=== PATIENT | male | born 1975 | race Caucasian/White ===

== ENCOUNTER → 2020-07-09 | Outpatient (CLI) | payer BC ==
[2020-07-09 16:25] LABS: BASOPHILS % 0.4 % (0.0-2.0); EOSINOPHILS % 3.5 % (0.0-5.0); HEMATOCRIT. 43.6 % (42.0-52.0); HEMOGLOBIN. 15.1 g/dL (14.0-18.0); LYMPHOCYTES % 31.7 % (20.0-50.0); MEAN CORPUSCULAR HEMOGLOBIN 29.2 pg (28.0-32.0); MEAN CORPUSCULAR VOLUME 83.9 fL (80.0-94.0); MEAN PLATELET VOLUME 9.1 fl (7.4-10.4); MONOCYTES % 11.2 % (2.0-8.0); NEUTROPHILS % 53.2 % (40.0-76.0); PLATELET 164 x1000/uL (130-400); RED BLOOD CELL COUNT 5.19 mill/uL (4.7-6.1); RED CELL DISTRIBUTION WIDTH 14.5 % (11.6-14.6)
[2020-07-09 16:26] LABS: CLARITY URINE CLEAR (CLEAR); COLOR URINE YELLOW (YELLOW); KETONES URINE NEGATIVE (NEGATIVE); LEUKOCYTE ESTERASE URINE NEGATIVE (NEGATIVE); NITRITE URINE NEGATIVE (NEGATIVE); OCCULT BLOOD URINE NEGATIVE (NEGATIVE); PH URINE 6.5 (4.5-8.0); PROTEIN URINE NEGATIVE (NEGATIVE); SPECIFIC GRAVITY URINE 1.025 (1.005-1.030)
[2020-07-09 16:40] LABS: CHLORIDE 106 mEq/L (98-107)
[2020-07-09 16:51] LABS: LDL CHOLESTEROL 131 mg/dL (5-100)
[2020-07-09 16:53] LABS: HDL CHOLESTEROL 32 mg/dL (40-59); TOTAL IRON BINDING CAPACITY 282 ug/dL (250-450)
[2020-07-09 17:03] LABS: FERRITIN 347 ng/mL (22-322)
[2020-07-09 17:14] LABS: VITAMIN B12 SERUM 775 pg/mL (211-911)
[2020-07-09 17:22] LABS: FOLIC ACID (FOLATE) SERUM > 20.00 ng/mL (>5.38)
[2020-07-11 05:12] LABS: % FREE PSA 21.7 % (.); PROSTATE SPECIFIC AG TOTAL 0.6 ng/mL (0.0-4.0); PSA FREE 0.13 ng/mL; VITAMIN D 25-OH 15.4 ng/mL (30.0-100.0)
== END | disposition home or self-care (01) ==
LOC: LAB 15:46
PROVIDERS: ATTEND Internal Medicine Geriatric Medicine
DX: Z12.5 Encounter for screening for malignant neoplasm of prostate (principal); Z00.01 Encounter for general adult medical examination with abnormal findings; N39.0 Urinary tract infection, site not specified
CPT/HCPCS: 36415; 80053; 80061; 81003; 82306; 82607; 82728; 82746; 83036; 83540; 83550; 84153; 84154; 84443; 85025; 86592

== ENCOUNTER → 2020-08-13 | Outpatient (CLI) | payer BC | END | disposition home or self-care (01) | LOC: MRI 08:37 | PROVIDERS: ATTEND Internal Medicine Geriatric Medicine | DX: M51.17 Intervertebral disc disorders with radiculopathy, lumbosacral region (principal); M48.07 Spinal stenosis, lumbosacral region; M77.51 Other enthesopathy of right foot and ankle | CPT/HCPCS: 72148; 73650 ==

== ENCOUNTER → 2021-05-05 | Outpatient (CLI) | payer BC ==
[2021-05-05 09:59] LABS: BASOPHILS % 0.7 % (0.0-2.0); EOSINOPHILS % 4.4 % (0.0-5.0); HEMATOCRIT. 46.2 % (42.0-52.0); LYMPHOCYTES % 34.3 % (20.0-50.0); MEAN CORPUSCULAR VOLUME 83.7 fL (80.0-94.0); MEAN PLATELET VOLUME 9.8 fl (7.4-10.4); MONOCYTES % 8.7 % (2.0-8.0); NEUTROPHILS % 51.9 % (40.0-76.0); PLATELET 136 x1000/uL (130-400); RED BLOOD CELL COUNT 5.53 mill/uL (4.7-6.1); RED CELL DISTRIBUTION WIDTH 14.8 % (11.6-14.6)
[2021-05-05 10:05] LABS: CHLORIDE 107 mEq/L (98-107)
== END | disposition home or self-care (01) ==
LOC: LAB 09:17
PROVIDERS: ATTEND Internal Medicine Geriatric Medicine
DX: K76.0 Fatty (change of) liver, not elsewhere classified (principal); R16.0 Hepatomegaly, not elsewhere classified; N28.81 Hypertrophy of kidney; E55.9 Vitamin D deficiency, unspecified; R10.11 Right upper quadrant pain
CPT/HCPCS: 36415; 76700; 80053; 82306; 83036; 85025

== ENCOUNTER → 2021-08-25 | Outpatient (CLI) | payer BC ==
[2021-08-25 14:02] LABS: CLARITY URINE CLEAR (CLEAR); COLOR URINE DARK YELLOW (YELLOW); KETONES URINE TRACE (NEGATIVE); LEUKOCYTE ESTERASE URINE NEGATIVE (NEGATIVE); NITRITE URINE NEGATIVE (NEGATIVE); OCCULT BLOOD URINE NEGATIVE (NEGATIVE); PH URINE 5.5 (4.5-8.0); PROTEIN URINE TRACE (NEGATIVE)
[2021-08-25 15:27] LABS: BASOPHILS % 0.5 % (0.0-2.0); EOSINOPHILS % 1.7 % (0.0-5.0); HEMATOCRIT. 46.7 % (42.0-52.0); HEMOGLOBIN. 16.2 g/dL (14.0-18.0); LYMPHOCYTES % 34.8 % (20.0-50.0); MEAN CORPUSCULAR HEMOGLOBIN 29.2 pg (28.0-32.0); MEAN CORPUSCULAR VOLUME 83.9 fL (80.0-94.0); MEAN PLATELET VOLUME 9.8 fl (7.4-10.4); MONOCYTES % 7.8 % (2.0-8.0); NEUTROPHILS % 55.2 % (40.0-76.0); PLATELET 146 x1000/uL (130-400); RED BLOOD CELL COUNT 5.56 mill/uL (4.7-6.1)
[2021-08-25 15:32] LABS: CHLORIDE 108 mEq/L (98-107)
[2021-08-25 15:49] LABS: HDL CHOLESTEROL 41 mg/dL (40-59); LDL CHOLESTEROL 125 mg/dL (5-100); PROSTRATE SPECIFIC AG TOTAL 0.68 ng/mL (0.0-4.0); TOTAL IRON BINDING CAPACITY 317 ug/dL (250-450)
[2021-08-25 16:00] LABS: HEPATITIS B SURFACE ANTIGEN NEGATIVE
[2021-08-25 16:11] LABS: FOLIC ACID (FOLATE) SERUM >20 ng/mL ng/mL (>5.38); VITAMIN B12 SERUM 511 pg/mL (211-911)
[2021-08-27 04:07] LABS: FOLICLE STIMULATING HORMONE 3.2 mIU/mL (1.5-12.4); VITAMIN D 25-OH 20.6 ng/mL (30.0-100.0)
== END | disposition home or self-care (01) ==
LOC: LAB 13:09
PROVIDERS: ATTEND Internal Medicine Geriatric Medicine
DX: Z00.01 Encounter for general adult medical examination with abnormal findings (principal); E66.2 Morbid (severe) obesity with alveolar hypoventilation; R73.09 Other abnormal glucose; K75.81 Nonalcoholic steatohepatitis (NASH); N39.0 Urinary tract infection, site not specified; M25.551 Pain in right hip; R03.0 Elevated blood-pressure reading, without diagnosis of hypertension; K29.00 Acute gastritis without bleeding
CPT/HCPCS: 36415; 80053; 80061; 81003; 82306; 82607; 82746; 83001; 83036; 83540; 83550; 84153; 84443; 85025; 85651; 86430; 86592; 86705; 86709; 86803; 87340; G0103

== ENCOUNTER → 2021-08-27 | Outpatient (CLI) | payer BC | END | disposition home or self-care (01) | LOC: RAD 11:55 | PROVIDERS: ATTEND Internal Medicine Geriatric Medicine | DX: M25.551 Pain in right hip (principal); M25.561 Pain in right knee | CPT/HCPCS: 73502; 73562 ==

== ENCOUNTER → 2021-09-09 | Outpatient (CLI) | payer BC | END | disposition home or self-care (01) | LOC: MRI 08:07 | PROVIDERS: ATTEND Internal Medicine Geriatric Medicine | DX: M17.11 Unilateral primary osteoarthritis, right knee (principal); M94.261 Chondromalacia, right knee | CPT/HCPCS: 73721 ==

== ENCOUNTER → 2022-04-07 | Outpatient (CLI) | payer BC ==
[2022-04-07 11:48] LABS: BASOPHILS % 0.7 % (0.0-2.0); CLARITY URINE CLEAR (CLEAR); COLOR URINE YELLOW (YELLOW); EOSINOPHILS % 2.9 % (0.0-5.0); HEMATOCRIT. 47.7 % (42.0-52.0); HEMOGLOBIN. 16.8 g/dL (14.0-18.0); KETONES URINE NEGATIVE (NEGATIVE); LEUKOCYTE ESTERASE URINE NEGATIVE (NEGATIVE); LYMPHOCYTES % 32.1 % (20.0-50.0); MEAN CORPUSCULAR HEMOGLOBIN 29.3 pg (28.0-32.0); MEAN CORPUSCULAR VOLUME 83.2 fL (80.0-94.0); MEAN PLATELET VOLUME 9.6 fl (7.4-10.4); MONOCYTES % 6.5 % (2.0-8.0); NEUTROPHILS % 57.8 % (40.0-76.0); NITRITE URINE NEGATIVE (NEGATIVE); OCCULT BLOOD URINE NEGATIVE (NEGATIVE); PLATELET 155 x1000/uL (130-400); PROTEIN URINE NEGATIVE (NEGATIVE); RED BLOOD CELL COUNT 5.74 mill/uL (4.7-6.1); SPECIFIC GRAVITY URINE 1.018 (1.005-1.030); UROBILINOGEN URINE 0.2 E.U./dL (0.2-1.0)
[2022-04-07 12:04] LABS: CHLORIDE 108 mEq/L (98-107)
[2022-04-07 12:21] LABS: HDL CHOLESTEROL 35 mg/dL (40-59); LDL CHOLESTEROL 112 mg/dL (5-100)
[2022-04-07 12:34] LABS: FOLIC ACID (FOLATE) SERUM 19.5 ng/mL (>5.38)
[2022-04-07 13:46] LABS: PROSTRATE SPECIFIC AG TOTAL 0.64 ng/mL (0.0-4.0)
== END | disposition home or self-care (01) ==
LOC: LAB 11:11
PROVIDERS: ATTEND Internal Medicine Geriatric Medicine
DX: Z00.01 Encounter for general adult medical examination with abnormal findings (principal); R51.9 Headache, unspecified; N39.0 Urinary tract infection, site not specified
CPT/HCPCS: 36415; 80053; 80061; 81003; 82306; 82607; 82728; 82746; 83036; 84153; 84443; 84550; 85025; G0103

== ENCOUNTER → 2022-04-29 | Outpatient (CLI) | payer BC ==
[2022-04-29 09:54] LABS: CHLORIDE 104 mEq/L (98-107)
[2022-04-29 10:00] LABS: HDL CHOLESTEROL 42 mg/dL (40-59); LDL CHOLESTEROL 131 mg/dL (5-100)
== END | disposition home or self-care (01) ==
LOC: LAB 09:16
PROVIDERS: ATTEND Internal Medicine Geriatric Medicine
DX: E78.5 Hyperlipidemia, unspecified (principal)
CPT/HCPCS: 36415; 80048; 80061

== ENCOUNTER → 2022-09-17 | Outpatient (CLI) | payer BC ==
[2022-09-17 07:14] LABS: CLARITY URINE CLOUDY (CLEAR); COLOR URINE ORANGE (YELLOW); KETONES URINE TRACE (NEGATIVE); LEUKOCYTE ESTERASE URINE TRACE (NEGATIVE); NITRITE URINE NEGATIVE (NEGATIVE); OCCULT BLOOD URINE NEGATIVE (NEGATIVE); PROTEIN URINE TRACE (NEGATIVE); SPECIFIC GRAVITY URINE 1.026 (1.005-1.030)
[2022-09-17 08:09] LABS: CHLORIDE 108 mEq/L (98-107)
[2022-09-17 08:38] LABS: VITAMIN B12 SERUM 412 pg/mL (211-911)
[2022-09-17 08:45] LABS: FERRITIN 265 ng/mL (22-322)
[2022-09-17 08:46] LABS: PROSTRATE SPECIFIC AG TOTAL 0.63 ng/mL (0.0-4.0)
[2022-09-17 08:55] LABS: FOLIC ACID (FOLATE) SERUM > 20.00 ng/mL (>5.38)
[2022-09-17 09:55] LABS: HDL CHOLESTEROL 40 mg/dL (40-59); LDL CHOLESTEROL 126 mg/dL (5-100); TOTAL IRON BINDING CAPACITY 306 ug/dL (250-450)
== END | disposition home or self-care (01) ==
LOC: LAB 06:53
PROVIDERS: ATTEND Internal Medicine Geriatric Medicine
DX: Z00.01 Encounter for general adult medical examination with abnormal findings (principal); R73.09 Other abnormal glucose; K75.81 Nonalcoholic steatohepatitis (NASH); N39.0 Urinary tract infection, site not specified; R03.0 Elevated blood-pressure reading, without diagnosis of hypertension; Z12.5 Encounter for screening for malignant neoplasm of prostate; E66.2 Morbid (severe) obesity with alveolar hypoventilation
CPT/HCPCS: 36415; 80053; 80061; 81003; 82306; 82607; 82728; 82746; 83036; 83540; 83550; 84153; 84443; 86592; G0103

== ENCOUNTER → 2022-11-11 | Outpatient (CLI) | payer BC ==
[2022-11-11 17:46] LABS: CHLORIDE 106 mEq/L (98-107); INDEX HEMOLYSI 1 (1-3); INDEX ICTERIC 1 (1-4); INDEX LIPEMIC 1 (1-3); POTASSIUM 3.9 mEq/L (3.5-5.1); SODIUM 138 mEq/L (136-145)
[2022-11-11 17:54] LABS: ALANINE AMINOTRANSFERASE 50 IU/L (13-61); ALBUMIN 3.9 g/dL (3.4-5.0); ASPARTATE AMINOTRANSFERASE 27 IU/L (15-37); BILIRUBIN TOTAL 0.4 mg/dL (0.1-1.0); CALCIUM 8.9 mg/dL (8.5-10.1); CARBON DIOXIDE 27 mEq/L (21-32); CHOLESTEROL 209 mg/dL (<200); CREATININE 0.7 mg/dL (0.6-1.3); GLUCOSE 90 mg/dL (70-105); HDL CHOLESTEROL 43 mg/dL (40-59); LDL CHOLESTEROL 134 mg/dL (5-100); PROTEIN TOTAL 8.1 g/dL (6.0-8.3); TRIGLYCERIDE 261 mg/dL (0-150); UREA NITROGEN BLOOD 19 mg/dL (7-21)
== END | disposition home or self-care (01) ==
LOC: LAB 16:35
PROVIDERS: ATTEND Internal Medicine Geriatric Medicine
DX: E78.00 Pure hypercholesterolemia, unspecified (principal)
CPT/HCPCS: 36415; 80053; 80061; 83036

== ENCOUNTER → 2022-11-19 | Outpatient (CLI) | payer BC ==
[2022-11-19 07:14] LABS: BASOPHILS % 0.5 % (0.0-2.0); DIFFERENTIAL COMMENT 0; EOSINOPHILS % 1.9 % (0.0-5.0); HEMATOCRIT. 45.6 % (42.0-52.0); HEMOGLOBIN. 16.3 g/dL (14.0-18.0); MEAN CORPUSCULAR HEMOGLOBIN 29.8 pg (28.0-32.0); MEAN CORPUSCULAR HGB CONC 35.7 g/dL (31.0-37.0); MEAN CORPUSCULAR VOLUME 83.4 fL (80.0-94.0); MEAN PLATELET VOLUME 9.2 fl (7.4-10.4); MONOCYTES % 9.9 % (2.0-8.0); NEUTROPHILS % 61.7 % (40.0-76.0); PLATELET 147 x1000/uL (130-400); RED BLOOD CELL COUNT 5.47 mill/uL (4.7-6.1); RED CELL DISTRIBUTION WIDTH 14.9 % (11.6-14.6); WHITE BLOOD COUNT 6.6 x1000/uL (4.5-11.0)
[2022-11-19 08:43] LABS: CHLORIDE 106 mEq/L (98-107); INDEX HEMOLYSI 1 (1-3); INDEX ICTERIC 1 (1-4); INDEX LIPEMIC 1 (1-3); POTASSIUM 3.7 mEq/L (3.5-5.1); SODIUM 137 mEq/L (136-145)
[2022-11-19 08:54] LABS: ALANINE AMINOTRANSFERASE 46 IU/L (13-61); ALBUMIN 3.6 g/dL (3.4-5.0); AMYLASE 29 IU/L (25-115); ASPARTATE AMINOTRANSFERASE 23 IU/L (15-37); BILIRUBIN TOTAL 0.4 mg/dL (0.1-1.0); CALCIUM 8.2 mg/dL (8.5-10.1); CARBON DIOXIDE 27 mEq/L (21-32); CHOLESTEROL 194 mg/dL (<200); CREATININE 0.8 mg/dL (0.6-1.3); GLUCOSE 133 mg/dL (70-105); HDL CHOLESTEROL 41 mg/dL (40-59); LDL CHOLESTEROL 116 mg/dL (5-100); PROTEIN TOTAL 7.5 g/dL (6.0-8.3); TRIGLYCERIDE 494 mg/dL (0-150); UREA NITROGEN BLOOD 14 mg/dL (7-21)
== END | disposition home or self-care (01) ==
LOC: LAB 06:40
PROVIDERS: ATTEND Internal Medicine Geriatric Medicine
DX: K29.70 Gastritis, unspecified, without bleeding (principal); R73.9 Hyperglycemia, unspecified; R03.0 Elevated blood-pressure reading, without diagnosis of hypertension; E66.01 Morbid (severe) obesity due to excess calories
CPT/HCPCS: 36415; 80053; 80061; 82150; 83036; 85025; 87338

== ENCOUNTER → 2022-12-22 | Outpatient (CLI) | payer BC | END | disposition home or self-care (01) | LOC: RAD 10:10 | PROVIDERS: ATTEND Internal Medicine | DX: M25.511 Pain in right shoulder (principal) | CPT/HCPCS: 73030 ==

== ENCOUNTER → 2023-02-02 | Outpatient (CLI) | payer BC | END | disposition home or self-care (01) | LOC: MRI 09:20 | PROVIDERS: ATTEND Internal Medicine | DX: M51.37 Other intervertebral disc degeneration, lumbosacral region (principal); M51.27 Other intervertebral disc displacement, lumbosacral region; M47.817 Spondylosis without myelopathy or radiculopathy, lumbosacral region; M48.07 Spinal stenosis, lumbosacral region | CPT/HCPCS: 72148 ==

== ENCOUNTER → 2023-04-22 | Outpatient (CLI) | payer BC ==
[2023-04-22 08:54] LABS: BASOPHILS % 0.4 % (0.0-2.0); EOSINOPHILS % 0.3 % (0.0-5.0); HEMATOCRIT. 45.7 % (42.0-52.0); HEMOGLOBIN. 15.7 g/dL (14.0-18.0); LYMPHOCYTES % 24.5 % (20.0-50.0); MEAN CORPUSCULAR HEMOGLOBIN 28.6 pg (28.0-32.0); MEAN CORPUSCULAR HGB CONC 34.5 g/dL (31.0-37.0); MEAN PLATELET VOLUME 9.4 fl (7.4-10.4); MONOCYTES % 9.1 % (2.0-8.0); NEUTROPHILS % 65.7 % (40.0-76.0); PLATELET 173 x1000/uL (130-400); RED BLOOD CELL COUNT 5.51 mill/uL (4.7-6.1); RED CELL DISTRIBUTION WIDTH 14.9 % (11.6-14.6); WHITE BLOOD COUNT 9.6 x1000/uL (4.5-11.0)
[2023-04-22 08:56] LABS: CLARITY URINE CLEAR (CLEAR); COLOR URINE YELLOW (YELLOW); GLUCOSE URINE NEGATIVE (NEGATIVE); KETONES URINE NEGATIVE (NEGATIVE); LEUKOCYTE ESTERASE URINE NEGATIVE (NEGATIVE); NITRITE URINE NEGATIVE (NEGATIVE); OCCULT BLOOD URINE NEGATIVE (NEGATIVE); PROTEIN URINE NEGATIVE (NEGATIVE); SPECIFIC GRAVITY URINE 1.026 (1.005-1.030)
[2023-04-22 09:02] LABS: ALANINE AMINOTRANSFERASE 23 IU/L (10-49); ALBUMIN 4.4 g/dL (3.2-4.8); ASPARTATE AMINOTRANSFERASE 19 IU/L (<34); BILIRUBIN TOTAL 0.6 mg/dL (0.1-1.0); CALCIUM 9.1 mg/dL (8.7-10.4); CARBON DIOXIDE 26 mEq/L (21-32); CHLORIDE 104 mEq/L (98-107); CHOLESTEROL 210 mg/dL (<200); CREATININE 0.7 mg/dL (0.6-1.3); GLUCOSE 91 mg/dL (70-105); HDL CHOLESTEROL 45 mg/dL (>55); LDL CHOLESTEROL 137 mg/dL (5-100); POTASSIUM 4.1 mEq/L (3.5-5.1); PROTEIN TOTAL 7.7 g/dL (6.0-8.3); SODIUM 138 mEq/L (136-145); TRIGLYCERIDE 214 mg/dL (0-150); UREA NITROGEN BLOOD 15 mg/dL (9-23)
== END | disposition home or self-care (01) ==
LOC: LAB 08:18
PROVIDERS: ATTEND Internal Medicine Geriatric Medicine
DX: K75.81 Nonalcoholic steatohepatitis (NASH) (principal); R03.0 Elevated blood-pressure reading, without diagnosis of hypertension; N39.0 Urinary tract infection, site not specified
CPT/HCPCS: 36415; 80053; 80061; 81003; 83036; 85025

== ENCOUNTER → 2023-07-04 | Outpatient (CLI) | payer BC ==
[2023-07-04 08:27] LABS: BASOPHILS % 0.5 % (0.0-2.0); HEMATOCRIT. 45.7 % (42.0-52.0); HEMOGLOBIN. 15.7 g/dL (14.0-18.0); LYMPHOCYTES % 23.1 % (20.0-50.0); MEAN CORPUSCULAR HEMOGLOBIN 29.4 pg (28.0-32.0); MEAN CORPUSCULAR HGB CONC 34.4 g/dL (31.0-37.0); MEAN CORPUSCULAR VOLUME 85.3 fL (80.0-94.0); MEAN PLATELET VOLUME 9.4 fl (7.4-10.4); MONOCYTES % 8.8 % (2.0-8.0); NEUTROPHILS % 66.6 % (40.0-76.0); PLATELET 174 x1000/uL (130-400); RED BLOOD CELL COUNT 5.35 mill/uL (4.7-6.1); RED CELL DISTRIBUTION WIDTH 14.9 % (11.6-14.6); WHITE BLOOD COUNT 8.1 x1000/uL (4.5-11.0)
[2023-07-04 08:36] LABS: ALANINE AMINOTRANSFERASE 16 IU/L (10-49); ALBUMIN 4.3 g/dL (3.2-4.8); ASPARTATE AMINOTRANSFERASE 16 IU/L (<34); BILIRUBIN TOTAL 0.6 mg/dL (0.1-1.0); CALCIUM 8.7 mg/dL (8.7-10.4); CARBON DIOXIDE 25 mEq/L (21-32); CHLORIDE 106 mEq/L (98-107); CHOLESTEROL 192 mg/dL (<200); CREATININE 0.6 mg/dL (0.6-1.3); GLUCOSE 97 mg/dL (70-105); HDL CHOLESTEROL 46 mg/dL (>55); LDL CHOLESTEROL 118 mg/dL (5-100); PROTEIN TOTAL 6.9 g/dL (6.0-8.3); SODIUM 137 mEq/L (136-145); T4 FREE 1.09 ng/dL (0.89-1.76); THYROID STIMULATING HORMONE 1.21 uIU/mL (0.55-4.78); TRIGLYCERIDE 234 mg/dL (0-150); UREA NITROGEN BLOOD 11 mg/dL (9-23)
[2023-07-05 08:08] LABS: *THYROXINE INDEX FREE 1.6 (1.2-4.9); VITAMIN D 25-OH 17.7 ng/mL (30.0-100.0)
== END | disposition home or self-care (01) ==
LOC: LAB 07:35
PROVIDERS: ATTEND Internal Medicine Geriatric Medicine
DX: E78.5 Hyperlipidemia, unspecified (principal)
CPT/HCPCS: 36415; 80053; 80061; 82306; 83036; 83735; 83880; 84436; 84439; 84443; 84479; 85025

== ENCOUNTER → 2023-07-06 | Outpatient (CLI) | payer BC | END | disposition home or self-care (01) | LOC: MRI 07-05 14:54 | PROVIDERS: ATTEND Internal Medicine Geriatric Medicine | DX: S43.491A Other sprain of right shoulder joint, initial encounter (principal); M75.51 Bursitis of right shoulder; M75.31 Calcific tendinitis of right shoulder; M77.8 Other enthesopathies, not elsewhere classified; M19.011 Primary osteoarthritis, right shoulder; X58.XXXA Exposure to other specified factors, initial encounter; Y93.89 Activity, other specified; Y92.89 Other specified places as the place of occurrence of the external cause; Y99.8 Other external cause status | CPT/HCPCS: 73221 ==

== ENCOUNTER → 2023-07-08 | Outpatient (CLI) | payer BC | END | disposition home or self-care (01) | LOC: CARD 06:53 | PROVIDERS: ATTEND Specialist | DX: R00.2 Palpitations (principal) | CPT/HCPCS: 93017 ==

== ENCOUNTER → 2023-09-02 | Outpatient (CLI) | payer BC ==
[2023-09-02 08:18] LABS: CLARITY URINE CLEAR (CLEAR); COLOR URINE YELLOW (YELLOW); GLUCOSE URINE NEGATIVE (NEGATIVE); KETONES URINE NEGATIVE (NEGATIVE); LEUKOCYTE ESTERASE URINE NEGATIVE (NEGATIVE); NITRITE URINE NEGATIVE (NEGATIVE); OCCULT BLOOD URINE NEGATIVE (NEGATIVE); PH URINE 5.5 (4.5-8.0); PROTEIN URINE NEGATIVE (NEGATIVE); SPECIFIC GRAVITY URINE 1.018 (1.005-1.030); UROBILINOGEN URINE 0.2 E.U./dL (0.2-1.0)
[2023-09-02 08:25] LABS: BASOPHILS % 0.5 % (0.0-2.0); EOSINOPHILS % 2.3 % (0.0-5.0); HEMATOCRIT. 47.9 % (42.0-52.0); HEMOGLOBIN. 16.4 g/dL (14.0-18.0); LYMPHOCYTES % 27.9 % (20.0-50.0); MEAN CORPUSCULAR HEMOGLOBIN 29.1 pg (28.0-32.0); MEAN CORPUSCULAR HGB CONC 34.3 g/dL (31.0-37.0); MEAN PLATELET VOLUME 9.4 fl (7.4-10.4); MONOCYTES % 8.2 % (2.0-8.0); NEUTROPHILS % 61.1 % (40.0-76.0); PLATELET 150 x1000/uL (130-400); RED BLOOD CELL COUNT 5.63 mill/uL (4.7-6.1); RED CELL DISTRIBUTION WIDTH 14.9 % (11.6-14.6); WHITE BLOOD COUNT 6.4 x1000/uL (4.5-11.0)
[2023-09-02 08:27] LABS: CHLORIDE 106 mEq/L (98-107); SODIUM 138 mEq/L (136-145)
[2023-09-02 08:28] LABS: CALCIUM 9.3 mg/dL (8.7-10.4); CARBON DIOXIDE 25 mEq/L (21-32)
[2023-09-02 08:33] LABS: CREATININE 0.6 mg/dL (0.6-1.3); GLUCOSE 95 mg/dL (70-105); UREA NITROGEN BLOOD 10 mg/dL (9-23)
[2023-09-02 08:35] LABS: ALANINE AMINOTRANSFERASE 27 IU/L (10-49); ALBUMIN 4.7 g/dL (3.2-4.8); ASPARTATE AMINOTRANSFERASE 23 IU/L (<34); BILIRUBIN TOTAL 0.5 mg/dL (0.1-1.0); PROTEIN TOTAL 7.3 g/dL (6.0-8.3)
[2023-09-02 08:44] LABS: C REACTIVE PROTEIN QUANT 9.8 mg/L (0.0-3.0)
== END | disposition home or self-care (01) ==
LOC: LAB 07:44
PROVIDERS: ATTEND Internal Medicine Geriatric Medicine
DX: E66.01 Morbid (severe) obesity due to excess calories (principal); R03.0 Elevated blood-pressure reading, without diagnosis of hypertension; N39.0 Urinary tract infection, site not specified; R73.09 Other abnormal glucose
CPT/HCPCS: 36415; 80053; 81003; 83036; 85025; 86140; 86430

== ENCOUNTER → 2023-09-23 | Outpatient (CLI) | payer BC | END | disposition home or self-care (01) | LOC: MRI 07:26 | PROVIDERS: ATTEND Internal Medicine Geriatric Medicine | DX: N50.3 Cyst of epididymis (principal); N43.2 Other hydrocele; M54.12 Radiculopathy, cervical region | CPT/HCPCS: 72141; 76870; 93976 ==

== ENCOUNTER → 2024-04-06 | Outpatient (CLI) | payer BC ==
[2024-04-06 09:51] LABS: BASOPHILS % 0.7 % (0.0-2.0); EOSINOPHILS % 1.7 % (0.0-5.0); HEMATOCRIT. 48.1 % (42.0-52.0); HEMOGLOBIN. 16.4 g/dL (14.0-18.0); LYMPHOCYTES % 31.9 % (20.0-50.0); MEAN CORPUSCULAR VOLUME 85.2 fL (80.0-94.0); MEAN PLATELET VOLUME 9.5 fl (7.4-10.4); MONOCYTES % 8.1 % (2.0-8.0); NEUTROPHILS % 57.6 % (40.0-76.0); PLATELET 144 x1000/uL (130-400); RED BLOOD CELL COUNT 5.64 mill/uL (4.7-6.1); RED CELL DISTRIBUTION WIDTH 14.9 % (11.6-14.6)
[2024-04-06 09:58] LABS: CLARITY URINE CLEAR (CLEAR); COLOR URINE YELLOW (YELLOW); GLUCOSE URINE NEGATIVE (NEGATIVE); KETONES URINE NEGATIVE (NEGATIVE); LEUKOCYTE ESTERASE URINE NEGATIVE (NEGATIVE); NITRITE URINE NEGATIVE (NEGATIVE); OCCULT BLOOD URINE NEGATIVE (NEGATIVE); PROTEIN URINE NEGATIVE (NEGATIVE); SPECIFIC GRAVITY URINE 1.023 (1.005-1.030); UROBILINOGEN URINE 0.2 E.U./dL (0.2-1.0)
[2024-04-06 10:11] LABS: CALCIUM 9.8 mg/dL (8.7-10.4); CARBON DIOXIDE 27 mEq/L (21-32); CHLORIDE 104 mEq/L (98-107); POTASSIUM 4.1 mEq/L (3.5-5.1); SODIUM 138 mEq/L (136-145)
[2024-04-06 10:15] LABS: IRON 100 ug/dL (65-175)
[2024-04-06 10:16] LABS: CREATININE 0.7 mg/dL (0.6-1.3); GLUCOSE 94 mg/dL (70-105); TRIGLYCERIDE 304 mg/dL (0-150); URIC ACID 5.7 mg/dL (3.7-9.2)
[2024-04-06 10:17] LABS: LDL CHOLESTEROL 122 mg/dL (5-100); UREA NITROGEN BLOOD 12 mg/dL (9-23)
[2024-04-06 10:18] LABS: ALANINE AMINOTRANSFERASE 32 IU/L (10-49); ALBUMIN 4.5 g/dL (3.2-4.8); ASPARTATE AMINOTRANSFERASE 26 IU/L (<34); BILIRUBIN TOTAL 0.8 mg/dL (0.1-1.0); CHOLESTEROL 210 mg/dL (<200); HDL CHOLESTEROL 40 mg/dL (>55); TOTAL IRON BINDING CAPACITY 323 ug/dl (250-425)
[2024-04-06 10:19] LABS: PROTEIN TOTAL 7.3 g/dL (6.0-8.3)
[2024-04-06 11:23] LABS: VITAMIN B12 SERUM 355 pg/mL (211-911)
[2024-04-06 11:52] LABS: FOLIC ACID (FOLATE) SERUM > 20.00 ng/mL (>5.38)
== END | disposition home or self-care (01) ==
LOC: LAB 08:57
PROVIDERS: ATTEND Internal Medicine Geriatric Medicine
DX: Z00.01 Encounter for general adult medical examination with abnormal findings (principal); M79.2 Neuralgia and neuritis, unspecified
CPT/HCPCS: 36415; 80053; 80061; 81003; 82306; 82607; 82746; 83540; 83550; 84153; 84550; 85025; 86592

== ENCOUNTER → 2024-05-14 | Outpatient (CLI) | payer BC ==
[2024-05-14 08:12] LABS: VITAMIN B12 SERUM 491 pg/mL (211-911)
[2024-05-15 08:09] LABS: T4 THYROXINE 7.4 ug/dL (4.5-12.0)
== END | disposition home or self-care (01) ==
LOC: LAB 07:06
PROVIDERS: ATTEND Psychiatry & Neurology Neurology
DX: M79.609 Pain in unspecified limb (principal)
CPT/HCPCS: 36415; 82607; 83036; 84436; 84443; 84480

== ENCOUNTER → 2024-05-15 | Outpatient (CLI) | payer BC | END | disposition home or self-care (01) | LOC: MRI 12:36 | PROVIDERS: ATTEND Psychiatry & Neurology Neurology | DX: M47.817 Spondylosis without myelopathy or radiculopathy, lumbosacral region (principal); M51.27 Other intervertebral disc displacement, lumbosacral region; M48.07 Spinal stenosis, lumbosacral region; M50.322 Other cervical disc degeneration at C5-C6 level; M48.02 Spinal stenosis, cervical region | CPT/HCPCS: 72141; 72148 ==

== ENCOUNTER → 2024-08-08 | Outpatient (CLI) | payer BC | END | disposition home or self-care (01) | LOC: MRI 07:40 | PROVIDERS: ATTEND Internal Medicine Geriatric Medicine | DX: M22.42 Chondromalacia patellae, left knee (principal); M25.462 Effusion, left knee; M25.562 Pain in left knee | CPT/HCPCS: 73721 ==

== ENCOUNTER → 2024-09-06 | Outpatient (CLI) | payer BC | END | disposition home or self-care (01) | LOC: CARD 08:43 | PROVIDERS: ATTEND Specialist | DX: R00.2 Palpitations (principal); E78.5 Hyperlipidemia, unspecified | CPT/HCPCS: 93350 ==

== ENCOUNTER → 2024-10-11 | Outpatient (CLI) | payer BC | END | disposition home or self-care (01) | LOC: MRI 13:28 | PROVIDERS: ATTEND Internal Medicine Geriatric Medicine | DX: S83.012A Lateral subluxation of left patella, initial encounter (principal); S83.242A Other tear of medial meniscus, current injury, left knee, initial encounter; S83.105A Unspecified dislocation of left knee, initial encounter; S80.02XA Contusion of left knee, initial encounter; M22.42 Chondromalacia patellae, left knee; M25.462 Effusion, left knee; R60.0 Localized edema; M25.862 Other specified joint disorders, left knee; M67.52 Plica syndrome, left knee; M25.562 Pain in left knee; X58.XXXA Exposure to other specified factors, initial encounter; Y93.89 Activity, other specified; Y92.89 Other specified places as the place of occurrence of the external cause; Y99.8 Other external cause status | CPT/HCPCS: 73721 ==

== ENCOUNTER → 2024-10-23 | Outpatient (CLI) | payer BC ==
[2024-10-23 15:24] LABS: BASOPHILS % 0.7 % (0.0-2.0); EOSINOPHILS % 2.0 % (0.0-5.0); HEMATOCRIT. 44.7 % (42.0-52.0); HEMOGLOBIN. 15.6 g/dL (14.0-18.0); LYMPHOCYTES % 29.4 % (20.0-50.0); MEAN PLATELET VOLUME 9.6 fl (7.4-10.4); MONOCYTES % 9.1 % (2.0-8.0); NEUTROPHILS % 58.8 % (40.0-76.0); PLATELET 188 x1000/uL (130-400); RED BLOOD CELL COUNT 5.37 mill/uL (4.7-6.1); RED CELL DISTRIBUTION WIDTH 14.8 % (11.6-14.6)
[2024-10-23 15:27] LABS: COLOR URINE YELLOW (YELLOW); GLUCOSE URINE NEGATIVE (NEGATIVE); KETONES URINE NEGATIVE (NEGATIVE); LEUKOCYTE ESTERASE URINE NEGATIVE (NEGATIVE); NITRITE URINE NEGATIVE (NEGATIVE); OCCULT BLOOD URINE NEGATIVE (NEGATIVE); PH URINE 6.5 (4.5-8.0); PROTEIN URINE NEGATIVE (NEGATIVE); SPECIFIC GRAVITY URINE 1.021 (1.005-1.030); UROBILINOGEN URINE 1.0 E.U./dL (0.2-1.0)
[2024-10-23 15:31] LABS: INR 1.0
[2024-10-23 15:40] LABS: CREATININE 0.8 mg/dL (0.6-1.3); TRIGLYCERIDE 278 mg/dL (0-150); UREA NITROGEN BLOOD 15 mg/dL (9-23)
[2024-10-23 15:41] LABS: ASPARTATE AMINOTRANSFERASE 28 IU/L (<34); LDL CHOLESTEROL 141 mg/dL (5-100)
[2024-10-23 15:42] LABS: BILIRUBIN TOTAL 0.6 mg/dL (0.1-1.0); PROTEIN TOTAL 7.2 g/dL (6.0-8.3)
[2024-10-23 15:55] LABS: CLARITY URINE HAZY (CLEAR)
[2024-10-23 15:59] LABS: AMORPHOUS SEDIMENT URINE 2+ /lpf; BACTERIA URINE NONE SEEN; MUCUS URINE TRACE /lpf (NONE/TRACE); RBC URINE NONE SEEN /hpf (0-2); SQUAMOUS EPITHELIAL CELL URINE NONE SEEN /lpf (RARE/1+); WBC URINE 0-2 /hpf (0-2)
[2024-10-23 16:12] LABS: FOLIC ACID (FOLATE) SERUM 18.55 ng/mL (>5.38)
== END | disposition home or self-care (01) ==
LOC: RAD 14:48
PROVIDERS: ATTEND Internal Medicine Geriatric Medicine
DX: Z01.818 Encounter for other preprocedural examination (principal); M15.0 Primary generalized (osteo)arthritis; I10 Essential (primary) hypertension; R73.03 Prediabetes; E66.9 Obesity, unspecified
CPT/HCPCS: 36415; 71046; 80053; 80061; 81003; 82746; 83036; 84443; 84550; 85025

== ENCOUNTER → 2025-03-25 | Outpatient (CLI) | payer BC ==
[2025-03-25 12:05] LABS: BASOPHILS % 1.4 % (0.0-2.0); EOSINOPHILS % 2.3 % (0.0-5.0); HEMATOCRIT. 46.3 % (42.0-52.0); HEMOGLOBIN. 16.0 g/dL (14.0-18.0); LYMPHOCYTES % 30.3 % (20.0-50.0); MEAN PLATELET VOLUME 9.6 fl (7.4-10.4); MONOCYTES % 8.1 % (2.0-8.0); NEUTROPHILS % 57.9 % (40.0-76.0); PLATELET 158 x1000/uL (130-400); RED BLOOD CELL COUNT 5.54 mill/uL (4.7-6.1); RED CELL DISTRIBUTION WIDTH 14.7 % (11.6-14.6)
[2025-03-25 12:19] LABS: CREATININE 0.7 mg/dL (0.6-1.3); TRIGLYCERIDE 174 mg/dL (0-150); UREA NITROGEN BLOOD 9 mg/dL (9-23)
[2025-03-25 12:20] LABS: ASPARTATE AMINOTRANSFERASE 36 IU/L (<34); LDL CHOLESTEROL 145 mg/dL (5-100); PROTEIN TOTAL 7.2 g/dL (6.0-8.3)
[2025-03-25 12:21] LABS: BILIRUBIN TOTAL 0.6 mg/dL (0.1-1.0)
== END | disposition home or self-care (01) ==
LOC: LAB 10:34
PROVIDERS: ATTEND Internal Medicine Geriatric Medicine
DX: R73.03 Prediabetes (principal); E78.00 Pure hypercholesterolemia, unspecified; K21.9 Gastro-esophageal reflux disease without esophagitis
CPT/HCPCS: 36415; 80053; 80061; 83036; 85025